=== PATIENT | male | born 1985 | race Caucasian/White ===

== ENCOUNTER 2021-04-30 09:33 | Day surgery (SDC) | payer OTHER ==
[~2021-04-30] VITALS: Ht 182.9 cm; Wt 78.0 kg
[~2021-04-30 09:33] MED LIST: CALC500T93 PO; MAGN250T9 PO; MULT-449 PO
[2021-04-30 10:18] VITALS: BP 119/77
[2021-04-30] MEDS ORDERED: CHLORHEXIDINE 15 ML UDC PO ONE (10:30)
[2021-04-30] MEDS ORDERED: LACTATED RINGERS 1,000 ML IV SCH (10:30)
[2021-04-30] MEDS ORDERED: NEOSPORIN OINT, 15GM ONE (11:12)
[2021-04-30] MEDS ORDERED: LIDOCAINE/PF 1%, 30ML ONE (11:12)
[2021-04-30] MEDS ORDERED: BUPIVACAINE/PF 0.5% ONE (11:12)
[2021-04-30] MEDS ORDERED: PROPOFOL 10 MG/ML, 20ML ONE (11:45)
[2021-04-30] MEDS ORDERED: SUCCINYLCHOLINE 20 MG/ML, 10ML ONE (11:45)
[2021-04-30] MEDS ORDERED: ROCURONIUM 10 MG/ML,10ML ONE (11:45)
[2021-04-30] MEDS ORDERED: MIDAZOLAM 1 MG/ML, 2ML ONE (11:47)
[2021-04-30] MEDS ORDERED: FENTANYL PF 100 MCG/2ML ONE (12:01)
[2021-04-30] MEDS ORDERED: MEPERIDINE/PF 25MG/0.5ML IVPush PRN (12:30)
[2021-04-30] MEDS ORDERED: PROMETHAZINE 12.5 MG SUPP PR PRN (12:30)
[2021-04-30] MEDS ORDERED: OXYcodone 5 MG/5 ML ORAL.SOL UDC PO PRN (12:30)
[2021-04-30] MEDS ORDERED: DIAZEPAM 5 MG/ML, 2ML IVPush PRN (12:30)
[2021-04-30] MEDS ORDERED: EPHEDRINE 50 MG/ML, 1ML IVPush PRN (12:30)
[2021-04-30] MEDS ORDERED: HYDROmorphone 1 MG/ML, 1ML INJ IVPush PRN (12:30)
[2021-04-30] MEDS ORDERED: ONDANSETRON 2MG/ML, 2ML IVPush PRN (12:30)
[2021-04-30] MEDS ORDERED: MIDAZOLAM 1 MG/ML, 2ML IV PRN (12:30)
[2021-04-30] MEDS ORDERED: LABETALOL 5MG/ML, 20ML IV PRN (12:30)
[2021-04-30] MEDS ORDERED: FENTANYL PF 100 MCG/2ML IV PRN (12:30)
[2021-04-30] MEDS ORDERED: hydrALAzine 20 MG/ML, 1ML IV PRN (12:30)
[2021-04-30] MEDS ORDERED: DIPHENHYDRAMINE 50 MG/ML, 1ML IVPush PRN ×2 (12:30)
[2021-04-30] MEDS ORDERED: ACETAMINOPHEN 325 MG TABLET PO PRN (12:30)
[2021-04-30] MEDS ORDERED: ALBUTEROL SULFATE 2.5 MG/3 ML NPPB PRN (12:30)
[2021-04-30] MEDS ORDERED: PROMETHAZINE 25 MG/ML, 1ML IVPush PRN (12:30)
== END 2021-04-30 14:30 | disposition home or self-care (01) ==
LOC: OUT 09:33
PROVIDERS: ATTEND Orthopaedic Surgery
DX: G57.61 Lesion of plantar nerve, right lower limb (principal); M79.671 Pain in right foot; K21.9 Gastro-esophageal reflux disease without esophagitis; Z88.0 Allergy status to penicillin; Z91.011 Allergy to milk products; Z91.010 Allergy to peanuts; Z91.013 Allergy to seafood; Z91.018 Allergy to other foods; Z20.822 Contact with and (suspected) exposure to COVID-19; Z79.899 Other long term (current) drug therapy
CPT/HCPCS: 28080; 64445; 88304; J0330; J2250; J2704; J3010; J7120; U0003; U0005